=== PATIENT | male | born 1990 | race Two or more races ===

== ENCOUNTER → 2017-10-21 | Emergency (ER) | payer OTHER ==
[~2017-10-21] VITALS: Ht 175.3 cm; Wt 59.0 kg
[~2017-10-21] MED LIST: IBUPROFEN800 MG PO; NORFLEX100MG PO
== END | disposition home or self-care (01) ==
LOC: ER 09:31
DX: J11.1 Influenza due to unidentified influenza virus with other respiratory manifestations (principal); B34.9 Viral infection, unspecified

== ENCOUNTER 2017-11-02 09:39 | Emergency (ER) | payer OTHER ==
[~2017-11-02] VITALS: Ht 177.8 cm; Wt 59.0 kg
== END 2017-11-02 11:25 | disposition home or self-care (01) ==
LOC: ER 09:39
DX: K64.8 Other hemorrhoids (principal)

== ENCOUNTER 2017-11-17 05:30 | Day surgery (SDC) | payer OTHER ==
[2017-11-17] MEDS ORDERED: COLACE100 MG PO ×2 (08:16→08:26)
[2017-11-17] MEDS ORDERED: PERCOCET 5-3251 EACH PO ×2 (08:16→08:26)
== END 2017-11-17 13:40 | disposition home or self-care (01) ==
LOC: CIR.AMB 05:30 → AMB-ENDOS 08:30 → CIR.AMB 08:30
DX: K64.0 First degree hemorrhoids (principal); K62.89 Other specified diseases of anus and rectum

== ENCOUNTER 2018-06-08 08:57 | Emergency (ER) | payer OTHER ==
[~2018-06-08] VITALS: Ht 175.3 cm; Wt 59.0 kg
[~2018-06-08 08:57] MED LIST changes: +COLACE100 MG PO; +PERCOCET 5-3251 EACH PO
== END 2018-06-08 13:41 | disposition home or self-care (01) ==
LOC: ER 08:57
DX: B34.9 Viral infection, unspecified (principal); E86.0 Dehydration

== ENCOUNTER 2019-10-22 09:27 | Emergency (ER) | payer OTHER ==
[~2019-10-22] VITALS: Ht 175.3 cm; Wt 59.0 kg
== END 2019-10-22 11:03 | disposition home or self-care (01) ==
LOC: ER 09:27
DX: T15.12XA Foreign body in conjunctival sac, left eye, initial encounter (principal)

== ENCOUNTER → 2020-11-14 | Emergency (ER) | payer OTHER ==
[~2020-11-14] VITALS: Ht 175.3 cm; Wt 59.0 kg
== END | disposition home or self-care (01) ==
LOC: ER 11:47
DX: M25.562 Pain in left knee (principal)

== ENCOUNTER 2022-11-22 19:49 | Emergency (ER) | payer OTHER ==
[~2022-11-22] VITALS: Ht 175.3 cm; Wt 59.0 kg
[2022-11-22] MEDS ORDERED: GARAMYCIN OPHT3.5 GM OP (22:04)
== END 2022-11-22 22:52 | disposition home or self-care (01) ==
LOC: ER 19:49
DX: T15.92XA Foreign body on external eye, part unspecified, left eye, initial encounter (principal)